=== PATIENT | female | born 1940 | race Asian ===

== ENCOUNTER 2018-11-03 05:59 | Day surgery (SDC) | payer MEDICARE ==
[~2018-11-03] VITALS: Ht 152.4 cm; Wt 45.4 kg
[2018-11-03] MEDS ORDERED: MIDAZOLAM 2 MG/2 ML VIAL ONE (08:05)
[2018-11-03] MEDS ORDERED: fentaNYL 0.05 MG/ML VIAL ONE (08:05)
[2018-11-03] MEDS ORDERED: MIDAZOLAM 2 MG/2 ML VIAL IVP ONE (09:25)
== END 2018-11-03 09:45 | disposition home or self-care (01) ==
LOC: MOR 05:59 → MMU 06:12 → MOR 09:45
PROVIDERS: ATTEND Internal Medicine Gastroenterology
DX: K25.9 Gastric ulcer, unspecified as acute or chronic, without hemorrhage or perforation (principal); K20.9 Esophagitis, unspecified; K31.89 Other diseases of stomach and duodenum; I10 Essential (primary) hypertension; E03.9 Hypothyroidism, unspecified; Z79.899 Other long term (current) drug therapy; Z90.710 Acquired absence of both cervix and uterus; Z98.890 Other specified postprocedural states
CPT/HCPCS: 36415; 43239; 86677; J2250; J3010

== ENCOUNTER 2022-07-26 09:05 | Day surgery (SDC) | payer MEDICARE, OTHER ==
[~2022-07-26] VITALS: Ht 152.4 cm; Wt 46.3 kg
[2022-07-26] MEDS ORDERED: LIDOCAINE 2% 100 MG/5 ML UJET TP ONE (11:43)
[2022-07-26] MEDS ORDERED: fentaNYL citrate 0.05 MG/ML VIAL ONE (11:43)
[2022-07-26] MEDS ORDERED: fentaNYL citrate 0.05 MG/ML VIAL IVP ONE (12:35)
[2022-07-26] MEDS ORDERED: SIMETHICONE 40 MG/0.6 ML ONE (14:02)
== END 2022-07-26 13:18 | disposition home or self-care (01) ==
LOC: MMU 09:05 → MDS 09:05
PROVIDERS: ATTEND Internal Medicine Gastroenterology
DX: R19.4 Change in bowel habit (principal); R14.0 Abdominal distension (gaseous); R10.84 Generalized abdominal pain; I10 Essential (primary) hypertension; E78.5 Hyperlipidemia, unspecified; M81.0 Age-related osteoporosis without current pathological fracture; Z20.822 Contact with and (suspected) exposure to COVID-19; Z79.899 Other long term (current) drug therapy
CPT/HCPCS: 45378; 87426; J3010